=== PATIENT | female | born 1965 | race Caucasian/White ===

== ENCOUNTER 2018-03-30 08:01 | Day surgery (SDC) | payer BC ==
[~2018-03-30 08:01] MED LIST: CEFAZOLIN 2 Gram 2 GM/50 ML BAG IVPB ONE; FAMOTIDINE 20MG TABLET PO ONE; MECLIZINE 25 MG TABLET PO ONE; METOCLOPRAMIDE 10 MG TABLET PO ONE
[2018-03-30] MEDS ORDERED: CLINDAMYCIN 600MG/50ML PREMIX 600 MG/50 ML BAG IVPB ONE (08:02)
[2018-03-30] MEDS ORDERED: ONDANSETRON HCL IV 4 MG/2 ML VIAL IVP ONE (08:02)
[2018-03-30] MEDS ORDERED: BUPIVACAINE 0.5% (5MG/ML) PF 30ML VIAL IVP ONE (08:02)
[2018-03-30] MEDS ORDERED: SEVOFLURANE 250 ML INH ONE (08:02)
[2018-03-30] MEDS ORDERED: MIDAZOLAM HCL 2MG/2ML VIAL IV ONE (08:02)
[2018-03-30] MEDS ORDERED: PROPOFOL 10 MG/ML VIAL IV ONE (08:02)
[2018-03-30] MEDS ORDERED: HYDROMORPHONE HCL 2 MG/ML VIAL IV ONE (08:02)
[2018-03-30] MEDS ORDERED: LIDOCAINE 1% MDV (10MG/ML) 20ML VIAL SQ ONE (08:02)
[2018-03-30] MEDS ORDERED: DEXAMETHASONE 4 MG/ML 1ML VIAL IVP ONE (08:02)
[2018-03-30] MEDS ORDERED: OXYCODONE HCL/APAP 5MG/325MG TABLET PO ONE (08:02)
[2018-03-30] MEDS ORDERED: FENTANYL PF 100MCG/2ML VIAL IV ONE (08:02)
[2018-03-30] MEDS ORDERED: BUPIVACAINE LIPOSOME/PF 133MG/10ML VIAL IV ONE (08:02)
[2018-03-30 08:04] LABS: BASO % 0.5 % (0-6); EOS % 1.1 % (0-6); GRAN % 68.2 % (47-80); HEMATOCRIT 40.5 % (35.0-47.0); HEMOGLOBIN 13.9 gm/dl (11.6-16.0); LYMPH % 22.8 % (16-45); MEAN CELL VOLUME 86.2 fl (81-97); MEAN CORPUSCULAR HEMOGLOBIN 29.6 pg (27-33); MEAN CORPUSCULAR HGB CONC 34.3 g/dl (32-36); MEAN PLATELET VOLUME 10.5 fl (7.4-10.4); MONO % 7.4 % (0-9); PLATELET COUNT 278 K/uL (130-400); WHITE BLOOD COUNT W/O DIFF 8.2 K/uL (4.2-12.2)
[2018-03-30 08:51] LABS: BLOOD UREA NITROGEN 12 mg/dL (6-20); CREATININE 0.7 mg/dL (0.5-0.9); EST GLOMERULAR FILTRATION RATE > 60 mL/min; GLUCOSE,RANDOM 270 mg/dL (74-109)
--- NOTE | 2018-03-31 12:50 | Operative Note ---
DATE OF SURGERY: 03/30/2018 Surgeon: Elvis Norman DO PREOPERATIVE DIAGNOSIS: Calcific tendonitis of the left shoulder. POSTOPERATIVE DIAGNOSES: 1. Impingement syndrome, left shoulder. 2. Calcific tendonitis, left shoulder. OPERATION: 1. Arthroscopic subacromial decompression and acromioplasty, left shoulder. 2. Arthroscopic debridement of supraspinatus tendon, left shoulder. DESCRIPTION OF PROCEDURE: This 52-year-old female was taken to the operating room and placed in the supine position on the operating room table. General anesthetic was administered. The patient was placed in the beach chair position with all bony prominences well padded and the head well secured. The left shoulder was prepped with Hibiclens and draped in the usual sterile fashion. A posterior portal was established in the glenohumeral joint. Initial evaluation of the joint demonstrated normal appearance of the articular cartilage of the glenohumeral joint. The biceps tendon and subscapularis tendon as well as the supraspinatus and infraspinatus appeared to be essentially normal. We probed through an anterior portal. Did not reveal any further findings. No evidence of labral tear was present. The joint was suctioned. The scope was then placed in the subacromial space and significant amount of subacromial bursitis was present. There was significant inflammation of the rotator cuff. Arthroscopic subacromial decompression and acromioplasty was performed. I could not feel a defect in the rotator cuff. The cuff was penetrated with an 18-melvi spinal needle and we debrided the superior bursal surface but we did not have to make any incisions into the calcific mass. After subacromial decompression had been performed, the wound was irrigated and suctioned. The instruments were removed. Sterile dressings with sling immobilization were applied. The patient was taken to the recovery room in satisfactory condition. GROSS PATHOLOGY: This patient had evidence of calcific tendonitis of the left shoulder. We found at the time of the surgery that she had extensive subacromial bursitis with acute inflammatory changes of the superior aspect or bursal surface of the rotator cuff. This was debrided. We also poked holes in the cuff with an 18-melvi spinal needle searching for a localized mass of calcified material but this was not identified. CC: DO [id number] Luu
== END 2018-03-30 11:55 | disposition home or self-care (01) ==
LOC: SUR 08:01
PROVIDERS: ATTEND Orthopaedic Surgery
DX: M65.222 Calcific tendinitis, left upper arm (principal); M75.42 Impingement syndrome of left shoulder; K21.9 Gastro-esophageal reflux disease without esophagitis; I10 Essential (primary) hypertension; E11.9 Type 2 diabetes mellitus without complications; Z79.4 Long term (current) use of insulin
CPT/HCPCS: 36416; 80048; 82948; 85025; C9290; J2405